=== PATIENT | male | born 1965 | race Caucasian/White ===

== ENCOUNTER 2016-12-01 11:03 | Emergency (ER) ==
[2016-12-01 11:08] VITALS: BP 131/88; TEMP 98.8; BMI 29.0
--- NOTE | 2016-12-01 11:49 | DI ---
Exam: Three x-rays of the right shoulder. Comparison: None available. Reason for exam: Right shoulder pain. FINDINGS: No acute fracture or malalignment. The humeral head articulates to the bony glenoid. Th e acromioclavicular joint space is well maintained. The scapular Y-view is unremarkable. Impression: No acute fracture or dislocation in the right shoulder
== END 2016-12-01 12:15 | disposition home or self-care (01) ==
LOC: ED 11:03
DX: S46.911A Strain of unspecified muscle, fascia and tendon at shoulder and upper arm level, right arm, initial encounter (principal)
CPT/HCPCS: 99283

== ENCOUNTER 2016-12-05 07:49 | Outpatient (CLI) ==
--- NOTE | 2016-12-05 10:07 | MRI ---
EXAM: MRI right shoulder without contrast. HISTORY: Disorder of rotator cuff. Pain. Decreased range of motion x 4 days. No known injury. No right shoulder surgery reported.. TECHNIQUE: Using a local coil on a high field strength magnet multiplanar multisequence MRI was perf ormed of the right shoulder without intravenous or intra-articular gadolinium contrast. . COMPARISON: Three -view plain film examination right shoulder 12/01/2016.. FINDINGS: A Type I acromion. Coracoacromial ligament/arch intact with some thickening. There is ad ditionally a moderate to markedly severe right acromioclavicular joint degenerative arthrosis/osteoar throsis. Joint centered bone marrow edema and remodeling with some bony hypertrophy and osteophyte f ormation. Capsular/ligamentous hypertrophy as well.. Deltoid musculature within normal limits signa l intensity. No appreciable free fluid subacromial/subdeltoid bursa. Muscle bulk of the rotator cuff shows no overt atrophy or acute muscle strain. There is marked diffu se supraspinatus tendinosis over the insertion and critical zone. Remodeling with cyst formation ove r the anterior greater tuberosity. Diffuse infraspinatus tendinosis as well which is predominately i ntrasubstance. Approximate 5 x 7 mm slit-like rim rent tear as well. Anterior subscapularis tendinos is. A tiny 6 mm area of partial thickness rim rent tearing just above the lesser tuberosity. Long h ead of the biceps tendon shows intact fibers located in expected position within the bicipital groove and within normal limits signal intensity and morphology. Right humeral head seated. No right glenohumeral joint centered subchondral bone marrow edema or bon e erosions. Mild right glenohumeral joint osteoarthrosis. Physiologic amount of fluid right glenohu meral joint. Right glenoid labrum grossly intact on this non-arthrographic examination.. IMPRESSION: Moderate to markedly severe right acromioclavicular joint degenerative arthrosis/osteoar throsis. Marked diffuse supraspinatus tendinosis. No full-thickness rotator cuff tear identified. Diffuse infraspinatus tendinosis. 5 x 7 mm slit-like rim rent tear. Anterior subscapularis tendinosis. Tiny 6 mm partial thickness rim rent tearing. Mild right glenohumeral joint osteoarthrosis.
== END 2016-12-05 07:50 | disposition home or self-care (01) ==
LOC: RAD 07:49
PROVIDERS: ATTEND Physician Assistant Medical
DX: M75.81 Other shoulder lesions, right shoulder (principal)

== ENCOUNTER 2017-03-15 08:29 | Day surgery (SDC) ==
[2017-03-15] MEDS ORDERED: NEO-SYNEPHRINE OT PRN (09:04)
[2017-03-15] MEDS ORDERED: CORTISPORIN OTIC SUSP OT PRN (09:04)
[2017-03-15] MEDS ORDERED: VERSED ONE (10:15)
[2017-03-15] MEDS ORDERED: DIPRIVAN 20 ML VIAL IVP ONE (10:15)
[2017-03-15] MEDS ORDERED: SUBLIMAZE ONE (10:15)
[2017-03-15] MEDS ORDERED: LIDOCAINE 1%-EPI 1:100,000 20 ML MDV INJ STA (10:36)
[2017-03-15] MEDS ORDERED: GELFOAM SIZE 50 TP STA (10:38)
[2017-03-15] MEDS ORDERED: NEOSPORIN OINT 0.9 GM PACKET TP STA (10:38)
[2017-03-15 14:41] VITALS: BP 126/66; TEMP 97.5
--- NOTE | 2017-03-24 11:32 | OP ---
PREOPERATIVE DIAGNOSIS: LEFT TYMPANIC MEMBRANE PERFORATION POSTOPERATIVE DIAGNOSIS: LEFT TYMPANIC MEMBRANE PERFORATION OPERATION: LEFT TYPE 1 TYMPANOPLASTY. DESCRIPTION OF PROCEDURE: The patient was taken to surgery, placed on the table and general anesthesia was administered. The left ear was prepped and draped in the usual manner. 1% Xylocaine to 1 to 10,000 Epinephrine was injected in the external ear canal as well as tragus. A tragal perichondrial graft was obtained. The cartilage was placed back in the graft site and incision was closed using interrupted 6-0 Chromic suture. The edges of the perforation were freshened up with a straight pick then a tympanomeatal flap was created between approximately 6 and 12 o' clock. Dissection was carried down to the annulus and the annulus was elevated. A small myringotomy site was performed. The middle ear was filled with Gelfoam and then the cartilage was cut to proper size and laid on the tympanic membrane and tucked up against the surface of the drum The annulus was placed back in its anatomical position. Gelfoam was placed against the surface of the drum. The ear was filled with antibiotic ointment and incision site was closed with 6--0 Chromic suture. The patient was extubated and returned to the recovery room in satisfactory condition. ANY
== END 2017-03-15 12:15 | disposition home or self-care (01) ==
LOC: SURG 08:29
PROVIDERS: ATTEND Otolaryngology
DX: H72.92 Unspecified perforation of tympanic membrane, left ear (principal)